=== PATIENT | female | born 1980 | race African-American/Black ===

== ENCOUNTER 2018-04-09 01:55 | Emergency (ER) | payer OTHER ==
[~2018-04-09] VITALS: Ht 165.1 cm; Wt 100.0 kg
[2018-04-09] MEDS ORDERED: ACETAMINOPHEN 500MG TABLET PO ONE (04:00)
[2018-04-09] MEDS ORDERED: DIPHENHYDRAMINE 25MG CAPSULE PO ONE (04:00)
[2018-04-09 04:45] VITALS: BP 128/74
== END 2018-04-09 04:45 | disposition home or self-care (01) ==
LOC: ER 01:55
DX: L03.312 Cellulitis of back [any part except buttock and flank] (principal); T78.49XA Other allergy, initial encounter; F12.10 Cannabis abuse, uncomplicated; Z98.890 Other specified postprocedural states; X58.XXXA Exposure to other specified factors, initial encounter
CPT/HCPCS: 99283; Q0163